=== PATIENT | female | born 1990 | race Caucasian/White ===

== ENCOUNTER 2016-12-13 08:03 | Inpatient (IN) | payer MEDICAID ==
[~2016-12-13] VITALS: Ht 157.5 cm; Wt 65.5 kg
[~2016-12-13 08:03] MED LIST: PREN1TAB12 PO
[2016-12-13 08:04] VITALS: Ht 157.5 cm; Wt 65.5 kg
[2016-12-13] MEDS ORDERED: ACETAMINOPHEN 325 MG TAB PO STA (08:14)
--- NOTE | 2016-12-13 08:17 | ERD ---
ER Documentation Chief Complaint Date/Time DATE: 12/13/16 TIME: 08:16 Chief Complaint vag bleed this morning, 12 weeks HPI This is a 26-year-old female who presents the emergency room with vaginal bleeding and spotting. She states that she thinks she is anywhere from 12-17 weeks . She states that she was told her estimated due date was the last week of April. The patient describes approximately 12 hours of abdominal cramping that feels like menstrual. That is mild with associated vaginal spotting. No fevers or chills nausea or vomiting. ROS All systems reviewed and are negative except as per history of present illness. Medications Home Meds Reported Medications Vit/Fe Fumarate/Fa ( 1-1 Tablet) 1 Tab Tablet, 1 TAB PO DAILY, #1 03/08/12 Allergies Allergies: Coded Allergies: No Known Drug Allergies (Verified Allergy, Unknown, 07/05/10) PMhx/Soc History of Surgery: Yes (CS X 3) Anesthesia Reaction: No Hx Neurological Disorder: No Hx Respiratory Disorders: No Hx Cardiac Disorders: No Hx Psychiatric Problems: No Hx Miscellaneous Medical Probl: No Hx Alcohol Use: No Hx Substance Use: No Hx Tobacco Use: No Physical Exam Vitals Vital Signs Date Time Temp Pulse Resp B/P Pulse Ox O2 Delivery O2 Flow Rate FiO2 12/13/16 08:04 97.8 78 18 128/61 100 Physical Exam General: Well developed, well nourished, no acute distress Head: Normocephalic, atraumatic. Eyes: Pupils equally reactive, EOM intact ENT: Moist mucous membranes Neck: Supple, no lymphadenopathy Respiratory: Lungs clear bilaterally, no distress Cardiovascular: RRR, no murmurs, rubs, or gallops Abdominal: Soft, gravid abdomen appropriate for dates no tenderness to McBurney' s point : Deferred MSK: No edema, no unilateral swelling, 5/5 strength Neurologic: Alert and oriented, moving all extremities, normal speech, no focal weakness, no cerebellar signs Skin: No rash Psych: Normal mood Result Diagram: 12/13/16 0830 Results 24 hrs Laboratory Tests Test 12/13/16 08:15 12/13/16 08:30 Urine Color LT. YELLOW Urine Clarity CLEAR Urine pH 6.5 Urine Specific [place] 1.010 Urine Ketones NEGATIVE Urine Nitrite POSITIVE Urine Bilirubin NEGATIVE Urine Urobilinogen 0.2 E.U./dL Urine Leukocyte Esterase TRACE Urine Microscopic RBC 2-5/HPF Urine Microscopic WBC 2-5/HPF Urine Epithelial Cells RARE Urine Bacteria MANY Urine Hemoglobin 2+ Urine Glucose NEGATIVE% Urine Total Protein NEGATIVE White Blood Count 9.010^3/ul Red Blood Count 4.2710^6/ul Hemoglobin 11.8g/dl Hematocrit 36.3% Mean Corpuscular Volume 85.0fl Mean Corpuscular Hemoglobin 27.6pg Mean Corpuscular Hemoglobin Concent 32.5g/dl Red Cell Distribution Width 13.5% Platelet Count 72482^3/UL Mean Platelet Volume 9.9fl Neutrophils % 66.0% Lymphocytes % 27.1% Monocytes % 5.6% Eosinophils % 0.7% Basophils % 0.2% Nucleated Red Blood Cells % 0.0/100WBC Neutrophils # 5.910^3/ul Lymphocytes # 2.410^3/ul Monocytes # 0.510^3/ul Eosinophils # 0.110^3/ul Basophils # 0.010^3/ul Nucleated Red Blood Cells # 0.010^3/ul Beta HCG, Quantitative 75624.0mIU/ml Current Medications Medications (Trade) Dose Ordered Sig/Kristie Route PRN Reason Start Time Stop Time Status Last Admin Dose Admin Acetaminophen (Tylenol Tab) 650 mg ONCE STAT PO 12/13/16 08:14 12/13/16 08:15 DC 12/13/16 08:25 Procedures/MDM EKG, MONITORS, & DIAGNOSTIC IMAGING: Pelvic ultrasound: IMPRESSION: Single viable intrauterine gestation of approximately 16 weeks and 4 days based on ultrasound measurements. Low-lying posterior placenta with partial placenta previa. Follow-up is needed. LAB INTERPRETATION: Serum hCG: Pending Rh status: A positive, no indication for RhoGam MEDICAL DECISION MAKING: The patient's symptoms are most consistent with acute threatened miscarriage. She exhibits no signs or symptoms concerning for acute ectopic however this needs to be evaluated here in the emergency room and be ruled out. In addition I doubt other acute intra-abdominal process such as ovarian cyst, ovarian torsion, acute appendicitis, colitis, kidney stone, acute pancreatitis or acute cholecystitis. The patient will require further evaluation, laboratory testing and diagnostic imaging to evaluate and rule out acute ectopic . 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 We discussed this at the bedside. We had an in-depth conversation regarding the diagnosis of threatened miscarriage, the prevalence of this process, the expected management as well as return precautions. ER COURSE: The patient still reports some bleeding. I performed an external exam which does reveal some blood at the office. Internal exam contraindicated given placenta previa. The patient may also have a urinary tract infection, Macrobid or Keflex as indicated. However, given the patient's ultrasound showing evidence of placenta previa she may require observation. I spoke to Dr. Rodriguez , who is kind enough to come evaluate the patient. She feels the patient would benefit from admission for further observation. I kept the patient and/or family informed of laboratory and diagnostic imaging results throughout the emergency room course. 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 Admitting team: Dr. Rodriguez Admitting team indication: Insurance directed, patient does not recall the name of her primary OB Departure Diagnosis: Primary Impression: Vaginal bleeding in patient at less than 20 weeks gestation Additional Impressions: Placenta previa Trimester: second trimester Qualified Code: O44.02 - Placenta previa, second trimester Asymptomatic bacteriuria during Condition: Stable ELIN JIMENES MD December 13, 2016 08:17
[2016-12-13 08:40] LABS: ADD SCAN DIFF NO
[2016-12-13 08:47] LABS: BASOPHILS % 0.2 % (0.0-2.0); EOSINOPHILS # 0.1 10^3/ul (0.0-0.5); EOSINOPHILS % 0.7 % (0.0-7.0); HEMATOCRIT 36.3 % (37.0-47.0); HEMOGLOBIN 11.8 g/dl (12.0-16.0); LYMPHOCYTES # 2.4 10^3/ul (0.8-2.9); LYMPHOCYTES % 27.1 % (15.0-51.0); MEAN CORPUSCULAR HEMOGLOBIN 27.6 pg (29.0-33.0); MEAN CORPUSCULAR HGB CONC 32.5 g/dl (32.0-37.0); MEAN PLATELET VOLUME 9.9 fl (7.4-10.4); MONOCYTE # 0.5 10^3/ul (0.3-0.9); MONOCYTES % 5.6 % (0.0-11.0); NEUTROPHIL # 5.9 10^3/ul (1.6-7.5); PLATELET COUNT 222 10^3/UL (140-415); RED BLOOD COUNT 4.27 10^6/ul (4.20-5.40); RED CELL DISTRIBUTION WIDTH 13.5 % (11.5-14.5)
--- NOTE | 2016-12-13 08:50 | RADRPT ---
PROCEDURE: US OB. CLINICAL INDICATION: Size and dates , vaginal bleeding TECHNIQUE: Multiple sonographic images of the pelvis and gravid uterus were obtained. The images were reviewed on a PACS workstation. COMPARISON: No prior studies are available for comparison. FINDINGS: The cervix has a length of 4.9 cm. There is a trace amount of fluid within the cervix. There is a single viable intrauterine gestation. Cardiac activity is present with 148 beats per min [place]. There is a variable presentation. The placenta is posterior. There is no evidence for an abruption. There is a low-lying placenta wit h partial placenta previa. Measurements were made in order to determine age. The results are as follows: BPD =3.4 cm HC =12.9 cm AC =10.9 cm FL =2.1 cm Estimated gestational age of approximately 16 weeks and 4 days based on ultrasound measurements. Clinical age: 17 weeks and 1 day. The estimated date of delivery is 05/26/17, based on ultrasound measurements. The EFW = 160 g, 13.5%, based on LMP age. RPTAT: AA IMPRESSION: Single viable intrauterine gestation of approximately 16 weeks and 4 days based on ultrasound measu rements. Low-lying posterior placenta with partial placenta previa. Follow-up is needed. .Alfie Harper MD, MD Date Time Electronically viewed and signed by .Alfie Harper MD, MD on 12/13/2016 08:50 .S/
[2016-12-13 08:54] LABS: ADD UMIC YES; URINE BILIRUBIN (Dip) NEGATIVE (NEGATIVE); URINE BLOOD (Dip) 2+ (NEGATIVE); URINE COLOR LT. YELLOW (YELLOW); URINE GLUCOSE (Dip) NEGATIVE (NEGATIVE); URINE KETONES (Dip) NEGATIVE (NEGATIVE); URINE LEUKOCYTE ESTERASE (Dip) TRACE (NEGATIVE); URINE NITRITE (Dip) POSITIVE (NEGATIVE); URINE TOTAL PROTEIN (Dip) NEGATIVE (NEGATIVE); URINE UROBILINOGEN (Dip) 0.2 E.U./dL (0.1-1.0)
[2016-12-13 09:22] LABS: BACTERIA,URINE MANY
[2016-12-13] MEDS ORDERED: ONDANSETRON 4 MG INJ IV PRN (10:30)
[2016-12-13] MEDS ORDERED: ACETAMINOPHEN 325 MG TAB PO PRN (10:30)
--- NOTE | 2016-12-13 11:52 | HP ---
Date/Time of Note Date/Time of Note DATE: 12/13/16 TIME: 11:41 OB - History Hx of Present Free Text/Dictation I was consulted by ED attending to evaluate this 26-year-old who presented to emergency room with complaint of vaginal bleeding since today. Patient currently about 16 weeks by ultrasound today which is not consistent with her last menstrual period. Patient denies any complication in current . Has a history of 3. She started having bleeding today that gradually worsened. Started like spotting but increase when she is moving and urinating. She passed small clots when she was emergency room. She also complaining of cramps in the lower abdomen. She denies any dysuria or pain with urination. Urine analysis consistent with UTI. She denies any fever or chills. She denies any leaking of fluid. Her Rh+. She feels some pressure in her lower vagina and pelvis. She denies any complication in prior pregnancies as well as current . Ultrasound in the emergency room showed evidence of partial placenta previa. Last Menstrual Period: Sep 10, 2016 : 4 Para: 3 Spontaneous : 0 Care: Limited Care Other Concerns: Vaginal bleeding and current . Ultrasound and emergency room at the hospital showed evidence of partial placenta previa. Past Family/Social History * Past Medical, Surgical, Family and Obstetric Histories reviewed from chart. Past medical history: None Past surgical history: 3 Allergy history: NKDA Social history: Denies a smoking, drinking alcohol or use any drugs patient currently works at a [employer]. [employer]ER history: LMP: September 01, 2016 Denies any history of abnormal Pap smear in the past History of 3 Denies any complication in prior pregnancies Diagnosed with partial placenta previa at this admission on today's ultrasound in the emergency room. Placenta posterior partial previa Family history: None OB Admission Exam Vital Signs Vital Signs Vital Signs Date Time Temp Pulse Resp B/P Pulse Ox O2 Delivery O2 Flow Rate FiO2 12/13/16 08:04 97.8 78 18 128/61 100 Physical Exam HEENT: WNL Lungs: Clear Abdomen: WNL Reflexes: Normal Cervical Dilatation: None Effacement: 0% Station: -3 Last 72 hourBlood Glucose External genitalia: Within normal limits Speculum examination: Cervix appears closed and long. About 5 cc dark red blood in the vault No evidence of active bleeding noted Abdomen: Soft, gravid, fundal height consistent with 16 weeks , no uterine tenderness. Mild suprapubic tenderness noted no rebound tenderness, no guarding no rigidity Extremities: No calf tenderness, no click no edema PROCEDURE: US OB. CLINICAL INDICATION: Size and dates , vaginal bleeding TECHNIQUE: Multiple sonographic images of the pelvis and gravid uterus were obtained. The images were reviewed on a PACS workstation. COMPARISON: No prior studies are available for comparison. FINDINGS: The cervix has a length of 4.9 cm. There is a trace amount of fluid within the cervix. There is a single viable intrauterine gestation. Cardiac activity is present with 148 beats per minute. There is a variable presentation. The placenta is posterior. There is no evidence for an abruption. There is a low-lying placenta with partial placenta previa. Measurements were made in order to determine age. The results are as follows: BPD = 3.4 cm HC = 12.9 cm AC = 10.9 cm FL = 2.1 cm Estimated gestational age of approximately 16 weeks and 4 days based on ultrasound measurements. Clinical age: 17 weeks and 1 day. The estimated date of delivery is 05/26/17, based on ultrasound measurements. The EFW = 160 g, 13.5%, based on LMP age. RPTAT: AA IMPRESSION: Single viable intrauterine gestation of approximately 16 weeks and 4 days based on ultrasound measurements. Low-lying posterior placenta with partial placenta previa. Follow-up is needed. Last 72 hours Lab Results CBC & BMP 12/13/16 08:30 OB Assessment/Plan Other Assessment: 26-year-old Vaginal bleeding Posterior partial placenta previa History of 3. Posterior placenta with partial previa noted in current ultrasound in the hospital Rh+ Uterine cramps UTI, based on urine analysis No evidence of active bleeding Other plan: Patient will be admitted for overnight observation Will be started on antibiotics for UTI. Macrobid to be started after urine culture. IV hydration Pelvic rest Bedrest with bathroom privilege Watch closely If she remains stable and bleeding subsides, consider discharge home tomorrow with continue pelvic rest and follow-up with her primary TREE KILLER in the next 2 days with a strict bleeding precaution ultrasound finding discussed with the patient in detail. Needs to have a repeat ultrasound in about 3-4 weeks. Until then strict pelvic rest and avoiding of intercourse discussed. if follow-up ultrasound in 3-4 weeks shows resolution of previa can resume her sexual activity. Patient verbalized understanding Urine culture and sensitivity will be sent prior to starting antibiotics Needs continue completion of full course of antibiotics for 7 days Patient verbalized understanding RADHA PEÑALOZA MD December 13, 2016 11:51
[2016-12-13] MEDS ORDERED: NITROFURANTOIN (SR) 100 MG CAP PO SCH (12:00)
[2016-12-13 16:12] VITALS: BP 112/62; PULSE 76; RESP 16; TEMP 97.8
[2016-12-13] MEDS ORDERED: NACL 0.9% 3 ML SYG IV SCH (17:30)
[2016-12-13] MEDS: NITROFURANTOIN (SR) 100 MG CAP PO SCH (21:04)
--- NOTE | 2016-12-14 08:37 | PN ---
Date/Time of Note Date/Time of Note DATE: 12/14/16 TIME: 08:35 OB Subjective Subjective Subjective Patient reports minimal dark red blood. No contractions. OB Objective Objective Objective Gen: NAD Abd: gravid, NT FHT: + [place]: no UCs OB Assessment/Plan Other Assessment: 26 y/o with partial previa admitted for bleeding, also with UTI -stable with no active bleeding, discharge home -continue antibiotics for UTI, rx given -pelvic rest -f/u with OB MALATHI ORTIZ December 14, 2016 08:37
--- NOTE | 2016-12-14 08:40 | DS ---
Date/Time of Note Date/Time of Note DATE: 12/14/16 TIME: 08:38 Obstetrical Discharge Record Final Diagnosis Final Diagnosis: not delivered Other Final Diagnosis 1. partial previa 2. UTI Complications Other (partial previa) Condition on Discharge Physical Assessment Last Vitals: See PN Patient Condition: Stable ANGELJOVANNIMALATHI B. December 14, 2016 08:40
[2016-12-14] MEDS ORDERED: MULTIVIT/MIN/FOLATE/IRON/PREN TAB PO SCH (09:00)
[2016-12-14] MEDS: NITROFURANTOIN (SR) 100 MG CAP PO SCH (09:09)
== END 2016-12-14 11:55 | disposition home or self-care (01) | DRG 781 ==
LOC: FTE 08:03 → OBG 10:23
PROVIDERS: ADMIT Obstetrics & Gynecology Obstetrics; ATTEND Obstetrics & Gynecology Obstetrics
DX: O44.32 Partial placenta previa with hemorrhage, second trimester (principal); O23.42 Unspecified infection of urinary tract in pregnancy, second trimester; Z3A.20 20 weeks gestation of pregnancy
CPT/HCPCS: 36415; 76805; 81001; 84702; 85025; 86900; 86901